=== PATIENT | male | born 1955 | race Two or more races ===

== ENCOUNTER 2017-08-06 16:59 | Emergency (ER) | payer OTHER ==
[2017-08-06] MEDS ORDERED: ORPHENADRINE 30 MG/ML 2 ML VIAL IM STA (17:38)
[2017-08-06] MEDS ORDERED: KETOROLAC 30 MG/ML 1 ML VIAL IM STA (17:38)
--- NOTE | 2017-08-06 17:43 | ED ---
Back Pain HPI - General Chief Complaint: Back Pain/Injury Stated Complaint: low back pain Time Seen by Provider: 08/06/17 17:22 Source: patient, RN notes reviewed Limitations: no limitations - History of Present Illness Initial Comments: This is a 61-year-old male who presents to the emergency department with chief complaint of low back pain. Patient states that he developed low back pain one week ago and it has progressively worsened over the last 3 days. He states that he has difficulty getting out of bed because of the pain and when he wakes up the morning his low back feels stiff. He states the pain is increased when going up the stairs and with rotation. He denies saddle paresthesias or loss of bladder or bowel function. He denies numbness or tingling or radiation of pain down the legs. Patient denies any specific injury or trauma. He denies any recent falls. He does state that over East weekend he helped move a 900 pound pool table but states that he experienced no back pain after this activity. Patient also states that he developed dysuria 3 days ago. He also feels like he is not emptying his bladder fully. He states that he has had this in the past and was put on antibiotics. He states that he had ciprofloxacin left over and has taken 4 pills so far. He denies fevers or chills, abdominal pain, nausea or vomiting, diarrhea or constipation. Patient states that he was released from [facility] 8 months ago after being incarcerated for 25 years. He states that today he is having difficulty finding a doctor that takes his Medicaid insurance so presented here to the emergency department for evaluation. - Related Data Previous Rx's Medication Instructions Recorded Ciprofloxacin HCl 500 mg PO BID 7 Days #14 tab 08/06/17 Cyclobenzaprine [Flexeril] 10 mg PO TID #12 tab 08/06/17 Ibuprofen 600 mg PO Q6HR #30 tablet 08/06/17 Allergies Allergy/AdvReac Type Severity Reaction Status Date / Time No Known Allergies Allergy Verified 08/06/17 17:18 Review of Systems ROS Statement: Those systems with pertinent positive or pertinent negative responses have been documented in the HPI. ROS Other: All systems not noted in ROS Statement are negative. Past Medical History Additional Past Medical History / Comment(s): vertigo History of Any Multi-Drug Resistant Organisms: None Reported Additional Past Surgical History / Comment(s): eye detached retina Past Psychological History: No Psychological Hx Reported Smoking Status: Never smoker Past Alcohol Use History: Rare Past Drug Use History: None Reported General Exam - General Exam Comments Initial Comments: General: Awake and alert, well-developed; in no apparent distress. HEENT: Head atraumatic, normocephalic. Pupils are equal, round and reactive to light. Extraocular movements intact. Oropharynx moist without erythema or exudate. Neck: Supple. Normal ROM. Cardiovascular: Regular rate and rhythm. No murmurs, rubs or gallops. Chest symmetrical. Respiratory: Lungs clear to auscultation bilaterally. No wheezes, rales or rhonchi. Normal respiratory effort with no use of accessory muscles. Abdomen: Soft, non-tender, non-distended. No rigidity, rebound or guarding. Normal bowel sounds in all 4 quadrants. Musculoskeletal: Normal ROM of spine. Tenderness along bilateral lumbar paraspinal muscles and SI joint. No vertebral bony point tenderness. Sensation is intact. Pedal pulses are 2+ equal and palpable bilaterally. No bilateral CVA tenderness. Ambulating normally. Skin: [place], warm and dry without rashes or lesions. Neurological: Alert and oriented x3. CN II-XII grossly intact. Speech is fluent and answers are appropriate. No focal neuro deficits. Psychiatric: Normal mood and affect. No overt signs of depression or anxiety noted. Limitations: no limitations Course Vital Signs 08/06/17 08/06/17 17:14 18:26 Pulse Rate 103 H 84 Respiratory 20 18 Rate Blood Pressure 135/81 128/68 O2 Sat by Pulse 95 96 Oximetry - Reevaluation(s) Reevaluation #1: At this time, patient stated to the nurse that over the past 3 weeks he has been having chest pain. However, he denies current chest pain or associated symptoms. Will obtain an EKG. 08/06/17 18:30 Medical Decision Making - Medical Decision Making This is a 61-year-old male who presented to the emergency department with chief complaint of low back pain. Patient states that his low back has felt stiff and he feels an increase in pain when going up the stairs and when rotating. On physical examination, there is tenderness along the paraspinal muscles of bilateral lumbar spine. Patient denies saddle paresthesias, loss of bladder or bowel function, numbness or tingling or radiation of pain down the legs. He denies any specific injury or trauma or recent falls but does state that he helped move a 900 pound pool table a few weeks ago. X-rays were obtained and revealed evidence for degenerative disc disease, spondylosis and arthropathy. Patient also complained of dysuria over the past 3 days. He has been taking ciprofloxacin that he had leftover at home, his last dose was this morning. UA was obtained and revealed trace protein, 4+ glucose, small leukocyte esterase and 26 white blood cells. A bed side glucose was checked and this was 99. Patient will be given prescription for continuation of Cipro. While in the emergency department, he mentioned to the nurse that he has been having chest pain over the past couple of weeks but denied any current chest pain or associated symptoms. EKG was obtained and revealed normal sinus rhythm. Patient's vital signs have been stable and he is in no acute distress. He'll be discharged home with anti-inflammatories, muscle relaxers and antibiotics. Recommended establishing with a primary care provider. Patient is in agreement with plan and voices understanding. All questions were answered. - Lab Data Lab Results 08/06/17 08/06/17 Range/Units 17:55 18:33 POC Glucose (mg/dL) 99 (75-99) mg/dL POC Glu Extraction Operator ID Khalif El Urine Color Yellow Urine Appearance Cloudy (Clear) Urine pH 5.5 (5.0-8.0) Ur Specific [place] 1.020 (1.001-1.035) Urine Protein Trace H (Negative) Urine Glucose (UA) 4+ H (Negative) Urine Ketones Negative (Negative) Urine Blood Negative (Negative) Urine Nitrite Negative (Negative) Urine Bilirubin Negative (Negative) Urine Urobilinogen <2.0 (<2.0) mg/dL Ur Leukocyte Esterase Small H (Negative) Urine RBC 2 (0-5) /hpf Urine WBC 26 H (0-5) /hpf Ur Squamous Epith Cells <1 (0-4) /hpf Urine Bacteria Rare H (None) /hpf Urine Mucus Few H (None) /hpf - EKG Data EKG Comments: 18:35:50. Normal sinus rhythm, minimal voltage criteria for LVH, may be normal variant. Ventricular 87 bpm, ME interval 150, QRS duration 86, QT/QTC 352/423. No ST segment elevation or depression. - Radiology Data Radiology results: report reviewed Lumbar x-ray impression: 1. Mild multilevel degenerative disc disease and endplate spondylosis. 2. Additional facet arthropathy mid to lower lumbar spine. No vertebral compression collapse or malalignment. 3. Leftward truncal shift could be positional or due to muscle spasm. Disposition Clinical Impression: Acute low back pain, Urinary tract infection Disposition: HOME SELF-CARE Condition: Good Instructions: Acute Low Back Pain (ED), Urinary Tract Infection in Men (ED) Additional Instructions: Please take medications as prescribed. Please follow up with primary care provider within 1-2 days. Return to emergency department if symptoms should worsen or any concerns arise. Prescriptions: Ciprofloxacin HCl 500 mg PO BID 7 Days #14 tab Cyclobenzaprine [Flexeril] 10 mg PO TID #12 tab Ibuprofen 600 mg PO Q6HR #30 tablet Is patient prescribed a controlled substance at d/c from ED?: No Referrals: None,Stated [Primary Care Provider] - 1-2 days Jatin Kumari MD [STAFF PHYSICIAN] - 1-2 days Time of Disposition: 18:54
[2017-08-06] MEDS ORDERED: MECLIZINE 12.5 MG TAB PO STA (18:15)
[2017-08-06 18:22] LABS: Appearance,Urine Cloudy (Clear); Bacteria,Urine Rare /hpf; Bilirubin,Urine Negative (Negative); Blood,Urine Negative (Negative); Color,Urine Yellow; Glucose,Urine (UA) 4+ (Negative); Ketones,Urine Negative (Negative); Leukocyte Esterase,Urine Small (Negative); Mucus,Urine Few /hpf; Nitrite,Urine Negative (Negative); PH, Urine 5.5 (5.0-8.0); Protein,Urine Trace (Negative); RBC,Urine 2 /hpf (0-5); Squamous Epithelial Cell,Urine <1 /hpf (0-4); Urobilinogen,Urine <2.0 mg/dL (<2.0); WBC,Urine 26 /hpf (0-5)
--- NOTE | 2017-08-06 18:26 | XR ---
EXAMINATION TYPE: XR lumbar spine 2 or 3V DATE OF EXAM: 08/06/2017 COMPARISON: NONE HISTORY: 61-year-old male with low back pain TECHNIQUE: 3 views FINDINGS: Facet degenerative change mid to lower lumbar spine. There is an plate spondylosis throughout with mi ld disc space narrowing at L4-L5 and to a lesser extent at L3-L4. Alignment is maintained and vertebral body heights are preserved. Leftward truncal shift noted. IMPRESSION: 1. Mild multilevel degenerative disc disease and endplate spondylosis. 2. Additional facet arthropathy mid to lower lumbar spine. No vertebral compression collapse or malal ignment. 3. Leftward truncal shift could be positional or due to muscle spasm.
[2017-08-06 18:44] LABS: Glucose,Whole Blood 99 mg/dL (75-99)
[2017-08-06 19:11] VITALS: BP 141/89; PULSE 85; RESP 16; TEMP 98.4
== END 2017-08-06 19:13 | disposition home or self-care (01) ==
LOC: EC 16:59
DX: N39.0 Urinary tract infection, site not specified (principal); M54.5 Low back pain; M51.36 Other intervertebral disc degeneration, lumbar region; M47.816 Spondylosis without myelopathy or radiculopathy, lumbar region; M46.96 Unspecified inflammatory spondylopathy, lumbar region; R07.9 Chest pain, unspecified
CPT/HCPCS: 99284; 96372; 36415; 93005; 81001; 87086; 72100; J2360; J1885; 87077; 87186

== ENCOUNTER → 2017-11-15 | Outpatient (CLI) | payer OTHER ==
--- NOTE | 2017-11-15 22:44 | XR ---
EXAMINATION TYPE: XR hand complete 3 views RT, XR wrist complete 4 views RT DATE OF EXAM: 11/15/2017 COMPARISON: NONE HISTORY: 62-year-old male wrist and hand pain FINDINGS: Wrist: The radiocarpal and distal radioulnar joints as well as the midcarpal compartment appear intact. Mild ulnar sided soft tissue swelling may be present. No acute fracture, subluxation, or dislocation. Sma ll 4 mm corticated density along the dorsal ulnar aspect of the fifth CMC joint could represent a chr onic ununited fracture fragment or loose body. Hand: Mild degenerative spurring at the first CMC joint. No acute fracture, subluxation, or dislocation see n. IMPRESSION: Wrist and hand without acute osseous abnormality seen.
--- NOTE | 2017-11-15 22:46 | XR ---
EXAMINATION TYPE: XR knee complete RT DATE OF EXAM: 11/15/2017 COMPARISON: NONE HISTORY: 62-year-old male with knee pain TECHNIQUE: 3 views FINDINGS: Mild degenerative spurring in the medial and patellofemoral compartments. May be a small joint effusi on within the infrapatellar space. No acute fracture, subluxation, or dislocation seen. IMPRESSION: Mild degenerative spurring of the medial and patellofemoral compartments. No acute osseous abnormalit y seen.
== END | disposition home or self-care (01) ==
LOC: RADXRMAIN 15:35
PROVIDERS: ATTEND Family Medicine
DX: M76.891 Other specified enthesopathies of right lower limb, excluding foot (principal); M25.531 Pain in right wrist; M79.641 Pain in right hand

== ENCOUNTER → 2017-12-05 | Outpatient (CLI) | payer OTHER ==
[2017-12-06 02:39] LABS: Hepatitis A Antibody IgM Non-Reactive (Non-Reactive); Hepatitis B Core IgM Non-Reactive (Non-Reactive)
[2017-12-06 03:20] LABS: HIV 1 AB Non-Reactive (Non-Reactive); HIV AB P24 Non-Reactive (Non-Reactive); HIV P24 AG Non-Reactive (Non-Reactive)
[2017-12-06 14:54] LABS: C. trachomatis,PCR Negative (Neg,Equiv); Chlamydia trachomatis Source Urine; N. gonorrhoeae,PCR Negative (Neg,Equiv); Neisseria Source Urine
== END | disposition home or self-care (01) ==
LOC: LABWHC1 16:18
PROVIDERS: ATTEND Family Medicine
DX: Z20.2 Contact with and (suspected) exposure to infections with a predominantly sexual mode of transmission (principal)
CPT/HCPCS: 36415; 80074; 86780; 87390; 87491; 87591